=== PATIENT | male | born 1960 | race Caucasian/White ===

== ENCOUNTER → 2016-10-11 | Outpatient (REF) | payer OTHER, SELFPAY ==
[2016-10-11 20:51] LABS: MEAN CORPUSCULAR VOLUME 91.3 fl (80.0-96.0); WHITE BLOOD COUNT 7.2 K/mm3 (4.0-10.0)
[2016-10-11 21:18] LABS: ALBUMIN 4.4 GM/DL (3.2-5.2); ALBUMIN/GLOBULIN RATIO 1.63 (1.00-1.93); ALKALINE PHOSPHATASE 53 U/L (45-117); ALT/SGPT 33 U/L (12-78); ANION GAP 6 MEQ/L (8-16); AST/SGOT 23 U/L (15-37); BILIRUBIN,TOTAL 0.7 MG/DL (0.2-1.0); BLOOD UREA NITROGEN 13 MG/DL (7-18); CALCIUM LEVEL 9.2 MG/DL (8.5-10.1); CARBON DIOXIDE LEVEL 27 MEQ/L (21-32); CHLORIDE LEVEL 107 MEQ/L (98-107); CHOLESTEROL LEVEL 194 MG/DL (<200); GLOMERULAR FILTRATION RATE > 60.0 (>56); GLUCOSE, FASTING 106 MG/DL (70-105); POTASSIUM SERUM 5.1 MEQ/L (3.5-5.1); SODIUM LEVEL 140 MEQ/L (136-145); TOTAL PROTEIN 7.1 GM/DL (6.4-8.2); TRIGLYCERIDES LEVEL 69 MG/DL (<150)
== END ==
LOC: M SFHCLERA 16:42
PROVIDERS: ATTEND Physician Assistant
DX: E11.65 Type 2 diabetes mellitus with hyperglycemia (principal); Z12.5 Encounter for screening for malignant neoplasm of prostate; E78.2 Mixed hyperlipidemia; R10.12 Left upper quadrant pain
CPT/HCPCS: 80053; 80061; 82043; 83036; 85027; G0103

== ENCOUNTER → 2017-04-16 | Outpatient (REF) | payer OTHER ==
[2017-04-17 13:50] LABS: HEMATOCRIT 36.5 % (42.0-52.0); HEMOGLOBIN 11.9 g/dl (14.0-18.0); MEAN CORPUSCULAR HEMOGLOBIN 29.8 pg (27.0-33.0); MEAN CORPUSCULAR HGB CONC 32.6 g/dl (32.0-36.5); MEAN CORPUSCULAR VOLUME 91.3 fl (80.0-96.0); PLATELET COUNT, AUTOMATED 243 10^3/uL (150-450); RED CELL DISTRIBUTION WIDTH 13.1 % (11.5-14.5); WHITE BLOOD COUNT 7.2 10^3/uL (4.0-10.0)
[2017-04-17 14:52] LABS: ALBUMIN 3.7 GM/DL (3.2-5.2); ALBUMIN/GLOBULIN RATIO 1.12 (1.00-1.93); ALKALINE PHOSPHATASE 58 U/L (45-117); ALT/SGPT 34 U/L (12-78); ANION GAP 9 MEQ/L (8-16); AST/SGOT 18 U/L (7-37); BILIRUBIN,TOTAL 0.3 MG/DL (0.2-1.0); BLOOD UREA NITROGEN 18 MG/DL (7-18); CALCIUM LEVEL 8.8 MG/DL (8.5-10.1); CARBON DIOXIDE LEVEL 28 MEQ/L (21-32); CHLORIDE LEVEL 108 MEQ/L (98-107); CREATININE FOR GFR 0.96 MG/DL (0.70-1.30); FERRITIN 382 NG/ML (26-388); GLOMERULAR FILTRATION RATE > 60.0 (>56); GLUCOSE, FASTING 109 MG/DL (70-100); IRON (FE) 46 UG/DL (65-175); POTASSIUM SERUM 4.6 MEQ/L (3.5-5.1); SODIUM LEVEL 145 MEQ/L (136-145)
[2017-04-17 15:03] LABS: ESTIMATED AVERAGE GLUCOSE 163 MG/DL (60-110); HEMOGLOBIN A1c 7.3 %
== END ==
LOC: M SFHCLERA 17:12
DX: E11.65 Type 2 diabetes mellitus with hyperglycemia (principal); I10 Essential (primary) hypertension; D64.9 Anemia, unspecified

== ENCOUNTER → 2017-04-17 | Outpatient (CLI) | payer OTHER | LOC: M LRY 17:08 | DX: M79.642 Pain in left hand (principal) | CPT/HCPCS: 73130 ==

== ENCOUNTER → 2018-03-03 | Outpatient (REF) | payer OTHER ==
[2018-03-03 16:50] LABS: HEMATOCRIT 39.1 % (42.0-52.0); HEMOGLOBIN 12.8 g/dl (13.5-17.5); MEAN CORPUSCULAR HEMOGLOBIN 29.9 pg (27.0-33.0); MEAN CORPUSCULAR HGB CONC 32.7 g/dl (32.0-36.5); MEAN CORPUSCULAR VOLUME 91.4 fl (80.0-96.0); PLATELET COUNT, AUTOMATED 236 10^3/uL (150-450); RED BLOOD COUNT 4.28 10^6/uL (4.30-6.10); RED CELL DISTRIBUTION WIDTH 12.9 % (11.5-14.5); WHITE BLOOD COUNT 6.7 10^3/uL (4.0-10.0)
[2018-03-03 17:36] LABS: ALBUMIN 4.2 GM/DL (3.2-5.2); ALKALINE PHOSPHATASE 71 U/L (45-117); ALT/SGPT 37 U/L (12-78); ANION GAP 10 MEQ/L (8-16); AST/SGOT 17 U/L (7-37); BILIRUBIN,TOTAL 0.6 MG/DL (0.2-1.0); BLOOD UREA NITROGEN 15 MG/DL (7-18); CALCIUM LEVEL 8.9 MG/DL (8.5-10.1); CARBON DIOXIDE LEVEL 25 MEQ/L (21-32); CHLORIDE LEVEL 105 MEQ/L (98-107); CHOLESTEROL LEVEL 199 MG/DL (<200); CHOLESTEROL RISK RATIO 4.145 (<5); CREATININE FOR GFR 0.99 MG/DL (0.70-1.30); GLOMERULAR FILTRATION RATE > 60.0 (>56); GLUCOSE, FASTING 146 MG/DL (70-100); HDL CHOLESTEROL 48 MG/DL (>40); LDL CHOLESTEROL 131 MG/DL (<100); NON-HDL-C 151 MG/DL; POTASSIUM SERUM 4.2 MEQ/L (3.5-5.1); SODIUM LEVEL 140 MEQ/L (136-145); TOTAL PROTEIN 7.2 GM/DL (6.4-8.2); TRIGLYCERIDES LEVEL 99 MG/DL (<150)
[2018-03-03 18:03] LABS: MAU/CREAT RATIO 751.8 MCG/MG (0.0-30.0)
[2018-03-03 18:07] LABS: ESTIMATED AVERAGE GLUCOSE 243 MG/DL (60-110); HEMOGLOBIN A1c 10.1 %
== END ==
LOC: M SFHCLERA 11:12
DX: I10 Essential (primary) hypertension (principal); E11.65 Type 2 diabetes mellitus with hyperglycemia; E78.2 Mixed hyperlipidemia
CPT/HCPCS: 80053

== ENCOUNTER → 2018-04-22 | Outpatient (CLI) | payer OTHER ==
--- NOTE | 2018-04-22 08:14 | REP ---
Clinical: Left upper quadrant pain. Technique: Real time covarrubias scale and color evaluation using linear high frequency transducer. Findings: Directed down examining left upper quadrant the a site of the at the site of the patient's maximal tenderness demonstrates no obvious hernia, fluid collection, mass lesion or obvious abnormality. Pain with most pronounced with transducer pressure when compressing the underlying splenic flexure of the colon which demonstrated no obvious abnormality by sonographic evaluation. Impression: No obvious sonographic findings. Pain with transducer pressure over the splenic flexure. Consider contrast enhanced CT of the abdomen and pelvis for further investigation. Electronically Signed by Tristen Singleton MD 04/22/2018 08:06 A
== END ==
LOC: M RAD 07:36
PROVIDERS: ATTEND Physician Assistant Medical
DX: R10.12 Left upper quadrant pain (principal)

== ENCOUNTER → 2018-05-14 | Outpatient (CLI) | payer OTHER ==
[~2018-05-14] MED LIST: ATOR1TAB21 PO; GLIM4TAB PO; LISI-538 PO; METF500T4 PO
[2018-05-14 13:51] LABS: BLOOD UREA NITROGEN 22 MG/DL (7-18); CREATININE FOR GFR 1.08 MG/DL (0.70-1.30); GLOMERULAR FILTRATION RATE > 60.0 (>56)
== END ==
LOC: M LAB 12:51
PROVIDERS: ATTEND Physician Assistant Medical
DX: R10.12 Left upper quadrant pain (principal)

== ENCOUNTER → 2018-05-16 | Outpatient (CLI) | payer OTHER ==
[~2018-05-16] MED LIST changes: +GASTROGRAFIN SOLUTION 30ML (Q9963) As Ordered ONE; +ISOVUE-370 76% 100ML VIAL (Q9967) As Ordered ONE
--- NOTE | 2018-05-16 15:12 | REP ---
Clinical: Left upper quadrant pain and anemia. Technique: Axial contrast enhanced images from the lung bases to the pubic symphysis using oral (per protocol) and 100 ml Isovue 370 intravenous contrast material with coronal and sagittal re-formations. Automated dose reduction technique and changes based on patient's body habitus utilized for image acquisition. Findings: Lung bases are clear. Visualized heart and pericardium normal. Liver, spleen, pancreas, bilateral adrenal glands and kidneys are normal. Gallstones are identified identified within the gallbladder including a 5 mm calculus which may be lodged at the gallbladder neck/cystic duct. The enteric system is without obstruction or acute inflammatory process. Sigmoid diverticula noted without acute diverticulitis or pelvis demonstrates small fat containing inguinal hernias. Bladder is normal. Prostate gland is upper limits of normal in size. No ascites. No free air. No intraperitoneal or retroperitoneal adenopathy. Abdominal aorta without aneurysm or dissection. Musculoskeletal structures intact without focal osseous abnormality. Impression: 1. Cholelithiasis including possible 5 mm calculus lodged at the gallbladder neck/cystic duct confluence. No associated evidence to suggest acute cholecystitis. 2. Scattered sigmoid diverticula without acute diverticulitis. 3. Prostate gland is mildly enlarged. Electronically Signed by Tristen Singleton MD 05/16/2018 03:04 P
== END ==
LOC: M RAD 12:03
PROVIDERS: ATTEND Physician Assistant Medical
DX: R10.9 Unspecified abdominal pain (principal); D64.9 Anemia, unspecified

== ENCOUNTER 2018-05-22 09:10 | Day surgery (SDC) | payer OTHER ==
[~2018-05-22] VITALS: Ht 175.3 cm; Wt 95.3 kg
[~2018-05-22 09:10] MED LIST changes: -GASTROGRAFIN SOLUTION 30ML (Q9963) As Ordered ONE; -ISOVUE-370 76% 100ML VIAL (Q9967) As Ordered ONE; +NS 1,000 ML IV ONE
[2018-05-22] MEDS ORDERED: LIDOCAINE 2% INJ 100 MG/5 ML SDV (FOR ANES.) As Ordered ONE (09:45)
[2018-05-22] MEDS ORDERED: PROPOFOL 200 MG/20 ML VIAL As Ordered ONE (09:45)
--- NOTE | 2018-05-22 11:37 | ROOR ---
Patient Name: Maurisio Mcwilliams Procedure Date: 05/22/2018 10:38 AM Date of : 1960 Age: 57 Room: [facility] Gender: Male Note Status: Finalized Procedure: Upper GI endoscopy Indications: Abdominal pain in the left upper quadrant Providers: Chau Hilliard MD Referring MD: [facility], Admin. Requesting Provider: Medicines: Monitored Anesthesia Care Complications: No immediate complications. Procedure: Pre-Anesthesia Assessment: - Prior to the procedure, a History and Physical was performed, and patient medications and allergies were reviewed. The patient is competent. The risks and benefits of the procedure and the sedation options and risks were discussed with the patient. All questions were answered and informed consent was obtained. Patient identification and proposed procedure were verified by the physician, the nurse and the anesthesiologist in the procedure room. Mental Status Examination: alert and oriented. Airway Examination: normal oropharyngeal airway and neck mobility. Respiratory Examination: clear to auscultation. CV Examination: normal. Prophylactic Antibiotics: The patient does not require prophylactic antibiotics. Prior Anticoagulants: The patient has taken no previous anticoagulant or antiplatelet agents. ASA Grade Assessment: II - A patient with mild systemic disease. After reviewing the risks and benefits, the patient was deemed in satisfactory condition to undergo the procedure. The anesthesia plan was to use monitored anesthesia care (MAC). Immediately prior to administration of medications, the patient was re-assessed for adequacy to receive sedatives. The heart rate, respiratory rate, oxygen saturations, blood pressure, adequacy of pulmonary ventilation, and response to care were monitored throughout the procedure. The physical status of the patient was re-assessed after the procedure. The Endoscope was introduced through the mouth, and advanced to the second part of duodenum. The upper GI endoscopy was accomplished without difficulty. The patient tolerated the procedure well. Findings: The examined esophagus was normal. Diffuse mild inflammation characterized by erythema was found in the gastric body and in the gastric antrum. Biopsies were taken with a cold forceps for histology. Biopsies were taken with a cold forceps for Helicobacter pylori testing. Verification of patient identification for the specimen was done by the physician and nurse using the patient's name, date and medical record number. The duodenal bulb and second portion of the duodenum were normal. Biopsies for histology were taken with a cold forceps for evaluation of celiac disease. Biopsies for histology were taken with a cold forceps for evaluation of celiac disease. Impression: - Normal esophagus. - Gastritis. Biopsied. - Normal duodenal bulb and second portion of the duodenum. Biopsied. Recommendation: - Patient has a contact number available for emergencies. The signs and symptoms of potential delayed complications were discussed with the patient. Return to normal activities tomorrow. Written discharge instructions were provided to the patient. - Resume previous diet. - Continue present medications. - Await pathology results. - Return to primary care physician. - Based on the biopsy results you will receive a phone call from GI clinic in 2-3 weeks to review the pathology results AND/OR your results will be faxed to your Primary care physician. Chau Hilliard MD Chau Hilliard MD 05/22/2018 11:37:15 AM This report has been signed electronically. Number of Addenda: 0 Note Initiated On: 05/22/2018 10:38 AM Estimated Blood Loss: Estimated blood loss was minimal.
[2018-05-22 11:52] VITALS: BP 133/81
--- NOTE | 2018-05-22 11:55 | ROOR ---
Patient Name: Maurisio Mcwilliams Procedure Date: 05/22/2018 10:39 AM Date of : 1960 Age: 57 Room: [facility] Gender: Male Note Status: Finalized Procedure: Colonoscopy Indications: Screening for colorectal malignant neoplasm Providers: Chau Hilliard MD Referring MD: RILEY RUSTMartha [facility], Admin. Requesting Provider: Medicines: Monitored Anesthesia Care Complications: No immediate complications. Procedure: Pre-Anesthesia Assessment: - Prior to the procedure, a History and Physical was performed, and patient medications and allergies were reviewed. The patient is competent. The risks and benefits of the procedure and the sedation options and risks were discussed with the patient. All questions were answered and informed consent was obtained. Patient identification and proposed procedure were verified by the physician, the nurse and the anesthesiologist in the procedure room. Mental Status Examination: alert and oriented. Airway Examination: normal oropharyngeal airway and neck mobility. Respiratory Examination: clear to auscultation. CV Examination: normal. Prophylactic Antibiotics: The patient does not require prophylactic antibiotics. Prior Anticoagulants: The patient has taken no previous anticoagulant or antiplatelet agents. ASA Grade Assessment: II - A patient with mild systemic disease. After reviewing the risks and benefits, the patient was deemed in satisfactory condition to undergo the procedure. The anesthesia plan was to use monitored anesthesia care (MAC). Immediately prior to administration of medications, the patient was re-assessed for adequacy to receive sedatives. The heart rate, respiratory rate, oxygen saturations, blood pressure, adequacy of pulmonary ventilation, and response to care were monitored throughout the procedure. The physical status of the patient was re-assessed after the procedure. The Colonoscope was introduced through the anus and advanced to the terminal ileum, with identification of the appendiceal orifice and IC valve. The colonoscopy was performed without difficulty. The patient tolerated the procedure well. The quality of the bowel preparation was good. The terminal ileum, ileocecal valve, appendiceal orifice, and rectum were photographed. Scope insertion time was 3 minutes. Scope withdrawal time was 9 minutes. The total duration of the procedure was 12 minutes. Findings: The perianal and digital rectal examinations were normal. The terminal ileum appeared normal. Multiple small and large-mouthed diverticula were found in the sigmoid colon. There was no evidence of diverticular bleeding. Non-bleeding external and internal hemorrhoids were found during retroflexion. The hemorrhoids were medium-sized. The exam was otherwise normal throughout the examined colon. Impression: - The examined portion of the ileum was normal. - Moderate diverticulosis in the sigmoid colon. There was no evidence of diverticular bleeding. - Non-bleeding external and internal hemorrhoids. - No specimens collected. Recommendation: - Patient has a contact number available for emergencies. The signs and symptoms of potential delayed complications were discussed with the patient. Return to normal activities tomorrow. Written discharge instructions were provided to the patient. - High fiber diet. - Continue present medications. - Repeat colonoscopy in 10 years for screening purposes. - Return to primary care physician. Chau Hilliard MD Chau Hilliard MD 05/22/2018 11:55:30 AM This report has been signed electronically. Number of Addenda: 0 Note Initiated On: 05/22/2018 10:39 AM Estimated Blood Loss: Estimated blood loss: none.
== END 2018-05-22 12:32 | disposition home or self-care (01) ==
LOC: M OPP 09:10
PROVIDERS: ATTEND Internal Medicine Gastroenterology
DX: Z12.11 Encounter for screening for malignant neoplasm of colon (principal); R10.12 Left upper quadrant pain; K57.30 Diverticulosis of large intestine without perforation or abscess without bleeding; K64.8 Other hemorrhoids; K29.70 Gastritis, unspecified, without bleeding; E11.9 Type 2 diabetes mellitus without complications; I10 Essential (primary) hypertension; E78.00 Pure hypercholesterolemia, unspecified; Z79.84 Long term (current) use of oral hypoglycemic drugs; Z79.899 Other long term (current) drug therapy; Z80.42 Family history of malignant neoplasm of prostate

== ENCOUNTER → 2018-06-25 | Outpatient (REF) | payer OTHER ==
[~2018-06-25] MED LIST changes: -NS 1,000 ML IV ONE
== END ==
LOC: M SFHCLERA 11:53
PROVIDERS: ATTEND Nurse Practitioner Family
DX: E11.9 Type 2 diabetes mellitus without complications (principal); N40.0 Benign prostatic hyperplasia without lower urinary tract symptoms

== ENCOUNTER 2020-04-12 21:08 | Emergency (ER) | payer OTHER ==
[~2020-04-12] VITALS: Ht 175.3 cm; Wt 96.3 kg
[~2020-04-12 21:08] MED LIST changes: -GLIM4TAB PO; +GLIM4TAB5 PO; -LISI-538 PO; +LISI20TA33 PO; +METF-838 PO; -METF500T4 PO
--- OUTSIDE RECORDS SUMMARY | 2020-04-12 21:19 | CCD ---
Author Author Formerly [facility] Organization [facility] Address Unknown Phone Unavailable Care Team Providers Care Marker Delivery Name Role Phone Anastasia Nicole Unavailable PROBLEMS Type Condition ICD9-CM Code [id number] Code Onset Dates Condition S tatus SNOMED Code Notes Problem Mixed hyperlipidemia E78.2 Active 302718717 Problem Enlarged prostate N40.0 Active 860640224 Problem Essential hypertension I10 Active 36569487 Problem Diabetes type 2, controlled E11.9 Active 4405 4006 Problem Diabetes type 2, uncontrolled E11.65 Active 44 6481074 ALLERGIES No Known Allergies ENCOUNTERS from 1960 to 2020-02-25 Encounter Location Date Provider Diagnosis [facility] [address] [place] [address] Jan, Anastasia Nicole IMMUNIZATIONS Vaccine Route Administration Date Status TDAP 0.5mL (Boostrix) IM Intramuscular June 01, 2015 Administe red SOCIAL HISTORY Tobacco Use: Social History Observation Description Date Details (start date - stop date) Never Smoker Sex Assigned At : Social History Observation Description Sex Assigned At Unknown Education: Question Answer Notes Level of Education: High School Audit Question Answer Notes Total Score: 1 Interpretation: Alcohol Education Language: Question Answer Notes Languages spoken: Albanian Confucianism: Question Answer Notes Confucianism 33 None Drug and Alcohol Question Answer Notes Total Score: 0 Interpretation: No problems reported BMI Care Goal Follow-Up Question Answer Notes Above Normal BMI Follow-Up Dietary management educatio n, guidance, and counseling, Dietary needs education, Exercise promotion: strength training Tobacco Use: Question Answer Notes Are you a: never smoker REASON FOR REFERRAL No Information VITAL SIGNS No information MEDICATIONS Medication SIG (Take, Route, Frequency, Duration) Notes Start Da te End Date Status Glimepiride 4MG TAKE ONE TABLET BY MOUTH ONC E DAILY WITH BREAKFAST OR THE FIRST MAIN MEAL OF THE DAY Orally Once a day for 90 days Active FreeStyle Lite Test _ as directed In Vitro twice d aily as needed ICD10 E11.65 for 30 Active Lisinopril 20 MG 1 tablet Orally Once a day for 90 Active Blood Glucose Meter _ as directed _ daily as needed ICD10 E1 1.65 for 99 months May, Active FreeStyle Lite - USE TO TEST TWICE DAILY NEEDED for 99 days Active Atorvastatin Calcium 20 MG 1 tablet Orally Once a day for 90 day(s) Active FreeStyle Lancets _ as directed subcutaneously t wice daily as needed ICD10 E11.65 for 90 day(s) Active Glucophage XR 500 MG 1 tab in am w/ food, 2 tabs in pm w/ food Orally Once a day for 90 day(s) Active Lancets 30G _ as directed _ bid ICD10 E11.65 for 30 day(s) May, Active PROCEDURES No Information RESULTS No Results REASON FOR VISIT REFILL MEDICAL (GENERAL) HISTORY Type Description Date Surgical History fatty tumor removal 1998 Goals Section No Information Health Concerns No Information MEDICAL EQUIPMENT No Information MENTAL STATUS No Information FUNCTIONAL STATUS No Information ASSESSMENTS No Information PLAN OF TREATMENT Medication Medication Name Sig Start Date Stop Date Glimepiride 4MG TAKE ONE TABLET BY MOUTH ONC E DAILY WITH BREAKFAST OR THE FIRST MAIN MEAL OF THE DAY Orally Once a day for 90 days FreeStyle Lancets _ as directed subcutaneously t wice daily as needed ICD10 E11.65 for 90 day(s) Glucophage XR 500 MG 1 tab in am w/ food, 2 tabs in pm w/ food Orally Once a day for 90 day(s) Atorvastatin Calcium 20 MG 1 tablet Orally Once a day for 90 day (s) Lancets 30G _ as directed _ bid ICD10 E11.65 for 30 day(s) May, Lisinopril 20 MG 1 tablet Orally Once a day for 90 FreeStyle Lite Test _ as directed In Vitro twice d aily as needed ICD10 E11.65 for 30 FreeStyle Lite - USE TO TEST TWICE DAILY NEEDED for 99 days Next Appt Details Provider Name:Anastasia Corey, 2020-12- 08 10:00:00 AM, [address] [place], [address], Insurance Providers Payer Name Payer Address Payer Phone Insured Name Patient Relati onship to Insured Coverage Start Date Coverage End Date [facility]POR[facility] CLAIMS DEPT [address] [facility] [phone] AURY ESTRADA self
--- OUTSIDE RECORDS SUMMARY | 2020-04-12 21:19 | CCD ---
Author Author [facility] [employer] [facility] Organization [facility] [employer] [facility] [employer] Address Unknown Phone Unavailable Care Team Providers Care Conservation Science Teacher Name Role Phone Anastasia Nicole Unavailable PROBLEMS Type Condition ICD9-CM Code [id number] Code Onset Dates Condition S tatus SNOMED Code Notes Problem Mixed hyperlipidemia E78.2 Active 484991778 Problem Enlarged prostate N40.0 Active 689647985 Problem Essential hypertension I10 Active 04695034 Problem Diabetes type 2, controlled E11.9 Active 4405 4006 Problem Diabetes type 2, uncontrolled E11.65 Active 44 7508583 ALLERGIES No Known Allergies ENCOUNTERS from 1960 to 2020-03-05 Encounter Location Date Provider Diagnosis [facility] [address] [place] [address] Feb, Anastasiasole Nicole Diabetes type 2, controlled E11.9 ; Sari al physical exam Z00.00 ; Encounter for immunization Z23 ; Mixed hyperlipidemia E78.2 ; Essential hypertension I10 and Need for pneumococcal vaccine Z23 IMMUNIZATIONS Vaccine Route Administration Date Status TDAP [...] Education Language: Question Answer Notes Languages spoken: Polish Baptist: Question Answer Notes Baptist 33 None Drug and Alcohol Question Answer Notes Total Score: 0 Interpretation: No problems reported BMI Care Goal Follow-Up Question Answer Notes Above Normal BMI Follow-Up Dietary management educatio n, guidance, and counseling, Dietary needs education, Exercise promotion: strength training Tobacco Use: Question Answer Notes Are you a: never smoker REASON FOR REFERRAL No Information VITAL SIGNS Weight 217.2 lbs Feb, Height 69 in Feb, BMI 32.07 kg/m2 Feb, Heart Rate 60 /min Feb, Respiratory Rate 17 /min Feb, Temperature 97.3 degrees Fahrenheit Feb, Oximetry 100 Feb, Blood pressure systolic 156 mm Hg Feb, Blood pressure diastolic 72 mm Hg Feb, MEDICATIONS Medication SIG (Take, Route, Frequency, Duration) Notes Start Da te End Date Status Lancets 30G _ as directed _ bid ICD10 E11.65 for 30 day(s) May, Active Blood Glucose Meter _ as directed _ daily as needed ICD10 E1 1.65 for 99 months May, Active Lisinopril 20 MG 1 tablet Orally Once a day for 90 Active FreeStyle Lite Test _ as directed In Vitro twice d aily as needed ICD10 E11.65 for 30 Active Glucophage XR 500 MG 1 tab in am w/ food, 2 tabs in pm w/ food Orally Once a day for 90 day(s) Active FreeStyle Lite - USE TO TEST TWICE DAILY NEEDED for 99 days Active FreeStyle Lancets _ as directed subcutaneously t wice daily as needed ICD10 E11.65 for 90 day(s) Active Atorvastatin Calcium 20 MG 1 tablet Orally Once a day for 90 day(s) Active Glimepiride 4MG TAKE ONE TABLET BY MOUTH ONC E DAILY WITH BREAKFAST OR THE FIRST MAIN MEAL OF THE DAY Orally Once a day for 90 days Active PROCEDURES No Information RESULTS No Results REASON FOR VISIT annual wellness exam MEDICAL (GENERAL) HISTORY Type Description Date Surgical History fatty tumor removal 1998 Goals Section No Information Health Concerns No Information MEDICAL EQUIPMENT No Information MENTAL STATUS No Information FUNCTIONAL STATUS No Information ASSESSMENTS Encounter Date Diagnosis Assessment Notes Treatment Notes Treatm ent Clinical Notes Feb, Diabetes type 2, controlled (ICD-10 - E11.9) For your diabetes continue to follow low fat, low cholesterol, no added salt diet. . Exercise at least 150min/week. Referral sent for your eye screening . Your blood pressure is stable. Goal for Hemoglobin A1C is 7-7.5%. Labs ordered, if BS consistent w/ reported values will be at goal. Feb, Annual physical exam (ICD-10 - Z00.00) Appears to be stable at this time. Reviewed recommended screenings, up to date with exception of DM eye exam. Referral placed. Reviewed diet/lifestyle modifications. Feb, Encounter for immunization (ICD-10 - Z23) Patient Educated with: FLU Vaccine, Inactivated [id number] (FLU Vaccine, Inactivated [id number].pdf) Feb, Mixed hyperlipidemia (ICD-10 - E78.2) lab ordered, pending disposition Feb, Essential hypertension (ICD-10 - I10) Blood pressure is stable on meds. Continue current management. Attempt to follow DASH diet (lots of fruit, vegetable and low-fat dairy, low in saturated fat). Reduce salt to less than 2.4 grams/day. Engage in aerobic activities for 30 minutes on most days. Maintain a healthy weight. Limit alcohol intake to one drink a day. Feb, Need for pneumococcal vaccine (ICD-10 - Z23) PLAN OF TREATMENT Treatment Notes Assessment Notes Clinical Notes Diabetes type 2, controlled For your abril betes continue to follow low fat, low cholesterol, no added salt diet. . Exercise at least 150min/week. Referral sent for your eye screening . Your blood pressure is stable. Goal for Hemoglobin A1C is 7-7.5%. Labs ordered, if BS consistent w/ reported values will be at goal. Annual physical exam Appears to be stabl e at this time. Reviewed recommended screenings, up to date with exception of DM eye exam. Referral placed. Reviewed diet/lifestyle modifications. Encounter for immunization Patient Educated with: FLU Vaccine, Inactivated [id number] (FLU Vaccine, Inactivated [id number].pdf) Mixed hyperlipidemia lab ordered, pendin g disposition Essential hypertension Blood pressure is stable on meds. Continue current management. Attempt to follow DASH diet (lots of fruit, vegetable and low-fat dairy, low in saturated fat). Reduce salt to less than 2.4 grams/day. Engage in aerobic activities for 30 minutes on most days. Maintain a healthy weight. Limit alcohol intake to one drink a day. Treatment Notes Test Name Order Date Immunization: Pneumovax 23 0.5mL IM (Pneumococcal) Immunization: Flublok Quadrivalent (18 years & older) 0.5mL IM (Influenza) 2020-03-05 Future Test Test Name Order Date HEMOGLOBIN A1c [id number] MICROALBUMIN RANDOM [id number] Comprehensive Metabolic Profile (CMP) [id number] LIPID PANEL (CARDIAC RISK) [id number] CBC with Differential [id number] Next Appt Details 6 Months (DM visit) Reason: Insurance Providers Payer Name Payer Address Payer Phone Insured Name Patient Relati onship to Insured Coverage Start Date Coverage End Date [facility] [employer] CLAIM[facility] DEPT [address] [facility] [phone] AURY ESTRADA self
--- OUTSIDE RECORDS SUMMARY | 2020-04-12 21:19 | CCD ---
Author Author [facility] Address Unknown Phone Unavailable Support Name Relationship Address Phone UE Next Of Kin Unknown Unavailable YOSI SANTANA [place] [address] Tania Muniz ECON Unknown Unavailab le YOSI SANTANA ECON [address] [place] [address] [phone] Re-disclosure Warning The records that you are about to access may contain information from federally-assisted alcohol or drug abuse programs. If such information is present, then the following federally mandated warning applies: This information has been disclosed to you from records protected by federal confidentiality rules (42 CFR part 2). The federal rules prohibit you from making any further disclosure of this information unless further disclosure is expressly permitted by the written consent of the person to whom it pertains or as otherwise permitted by 42 CFR part 2. A general authorization for the release of medical or other information is NOT sufficient for this purpose. The Federal rules restrict any use of the information to criminally investigate or prosecute any alcohol or drug abuse patient.The records that you are about to access may contain highly sensitive health information, the redisclosure of which is protected by Article 27-F of the [facility] Public Health law. If you continue you may have access to information: Regarding HIV / AIDS; Provided by facilities licensed or operated by the [facility] Office of Mental Health; or Provided by the [facility] Office for People With Developmental Disabilities. If such information is present, then the following [facility] mandated warning applies: This information has been disclosed to you from confidential records which are protected by state law. State law prohibits you from making any further disclosure of this information without the specific written consent of the person to whom it pertains, or as otherwise permitted by law. Any unauthorized further disclosure in violation of state law may result in a fine or senior care sentence or both. A general authorization for the release of medical or other information is NOT sufficient authorization for further disc losure. Family History Family Member Name Family Member Gender Family Member Status Date o f Status Description Data Source(s) Unknown Unknown Problem MEDENT ([facility], ) Encounters Encounter Providers Location Date Indications Data Source(s ) [place] [address] [facility] [address] 03/01/2020 12:00:00 AM EST eCW1 ([facility] [place]) [place] [address] [facility] [place] [address] 01/25/2020 12:00:00 AM EST eCW1 ([facility] [place]) [place] [address] [facility] [address] 09/30/2019 12:00:00 AM EDT [facility] [place] [place] [address] [facility] [place] [address] 08/28/2019 12:00:00 AM EDT [facility] [place] [place] [address] [facility] [place] [address] 07/29/2019 12:00:00 AM EDT [facility]CW[facility] [place] [address] [facility] [place] [address] 04/24/2019 12:00:00 AM EST [facility]CW[facility] [place] [address] [facility] [place] [address] 04/17/2019 12:00:00 AM EST [facility] Insurance Providers Payer name Policy type / Coverage type Policy ID Covered democrat ID Covered democrat's relationship to griggs Policy Griggs Plan Information [facility] [id number] SP [id number] [address] [facility] [id number] 7 [id number] ANSI-Commercial [id number] [employer] [place] [id number] [facility] [id number] ANSI-Commercial [id number] ANSI-Commercial [id number] ANSI-Commercial [id number] [facility] [employer] [place] O [id number] S [id number] SELF PAY ONLY UNAVAILABLE SP UNAV AILABLE MEDICAID [id number] SP [id number] Social History Code Duration Value Status Description Data Source(s ) Smoking 03/01/2020 12:00:00 AM EST Never Smoker completed Never S moker eCW1 ([facility]) Vital Signs ID Date Data Source UNK Name Value Range Interpretation Code Description Data Source(s) Diastolic blood pressure 72 mm[Hg] 72 mm[Hg] eCW1 ([facility]) Systolic blood pressure 156 mm[Hg] 156 mm[Hg] e CW1 ([facility]) Body temperature 97.3 [degF] 97.3 [degF] eCW1 ( [facility]) Respiratory rate 17 /min 17 /min eCW1 ([facility]) Heart rate 60 /min 60 /min eCW1 ([facility]) Body mass index (BMI) [Ratio] 32.07 kg/m2 32.07 kg/m2 eCW1 ([facility]) Body height 69 [in_i] 69 [in_i] eCW1 ([facility]) Body weight 217.2 [lb_av] 217.2 [lb_av] eCW1 ([facility])
--- OUTSIDE RECORDS SUMMARY | 2020-04-12 23:30 | CCD ---
Author Author [facility] Address Unknown Phone Unavailable Support Name Relationship Address Phone UE Next Of Kin Unknown Unavailable YOSI SANTANA [place] [address] Tania Muniz ECON Unknown Unavailab le YOSI SANTANA ECON [address] [place] [address] [phone] Re-disclosure Warning The records that you are [...] is protected by Article 27-F of the [facility] Public Health law. If you continue you may have access to information: Regarding HIV / AIDS; Provided by facilities licensed or operated by the [facility] Office of Mental Health; or Provided by the [facility] Office for People With Developmental Disabilities. If such information is present, then the following [facility] mandated warning applies: This information has been [...] law may result in a fine or chcf sentence or both. A general authorization for the release of medical or other information is NOT sufficient authorization for further disc losure. Family History Family Member Name Family Member Gender Family Member Status Date o f Status Description Data Source(s) Unknown Unknown Problem MEDENT ([facility], ) Encounters Encounter Providers Location Date Indications Data Source(s ) [place] [address] [facility] [address] 03/01/2020 12:00:00 AM EST eCW1 ([facility] [place]) [place] [address] [facility] [place] [address] 01/25/2020 12:00:00 AM EST eCW1 ([facility] [place]) [place] [address] [facility] [address] 09/30/2019 12:00:00 AM EDT [facility] [place] [place] [address] [facility] [place] [address] 08/28/2019 12:00:00 AM EDT [facility]CW1 [facility] [place] [place] [address] [facility] [place] [address] 07/29/2019 12:00:00 AM EDT [facility]CW1 [facility] [place] [address] [facility] [place] [address] 04/24/2019 12:00:00 AM EST [facility]CW[facility] [place] [address] [facility] [place] [address] 04/17/2019 12:00:00 AM EST [facility]) Insurance Providers Payer name Policy type / Coverage type Policy ID Covered green party ID Covered green party's relationship to griggs Policy Griggs Plan Information [facility] [id number] SP [id number] [address] [facility] [id number] 7 [id number] ANSI-Commercial [id number] [employer] [place] Medicaid [id number] [facility] [id number] ANSI-Commercial [id number] ANSI-Commercial [id number] ANSI-Commercial [id number] [facility] [place] O [id number] S [id number] SELF PAY ONLY UNAVAILABLE SP UNAV AILABLE MEDICAID [id number] SP [id number] Social History Code Duration Value Status Description Data Source(s ) Smoking 03/01/2020 12:00:00 AM EST Never Smoker completed Never S moker eCW1 ([facility]) Vital Signs ID Date Data Source UNK Name Value Range Interpretation Code Description Data Source(s) Diastolic blood pressure 72 mm[Hg] 72 mm[Hg] eCW1 ([facility]) Systolic blood pressure 156 mm[Hg] 156 mm[Hg] e CW1 ([facility]) Body temperature 97.3 [degF] 97.3 [degF] eCW1 ( [facility]) Respiratory rate 17 /min 17 /min eCW1 ([facility]) Heart rate 60 /min 60 /min eCW1 ([facility]) Body mass index (BMI) [Ratio] 32.07 kg/m2 32.07 kg/m2 eCW1 ([facility]) Body height 69 [in_i] 69 [in_i] eCW1 ([facility]) Body weight 217.2 [lb_av] 217.2 [lb_av] eCW1 ([facility])
[2020-04-12] MEDS ORDERED: ACETAMINOPHEN TAB 650MG DOSE (2X325MG) PO ONE (23:45)
[2020-04-13 00:16] LABS: EOS % 0.2 % (0.0-3.0); HEMATOCRIT 31.8 % (42.0-52.0); HEMOGLOBIN 10.3 g/dl (13.5-17.5); LYMPH # 0.9 10^3/uL (1.5-5.0); LYMPH % 21.3 % (24.0-44.0); MEAN CORPUSCULAR HEMOGLOBIN 29.1 pg (27.0-33.0); MEAN CORPUSCULAR HGB CONC 32.4 g/dl (32.0-36.5); MEAN CORPUSCULAR VOLUME 89.8 fl (80.0-96.0); MONO # 0.4 10^3/uL (0.0-0.8); NEUTROPHILS % 69.3 % (36.0-66.0); PLATELET COUNT, AUTOMATED 155 10^3/uL (150-450); RED BLOOD COUNT 3.54 10^6/uL (4.30-6.10); WHITE BLOOD COUNT 4.3 10^3/uL (4.0-10.0)
[2020-04-13 00:33] LABS: INR 1.04; PROTHROMBIN TIME 13.8 SECONDS (12.5-14.3)
[2020-04-13 00:34] LABS: PARTIAL THROMBOPLASTIN TIME 32.3 SECONDS (24.2-38.5)
[2020-04-13 00:36] LABS: D-DIMER QUANT 561.33 ng/ml (<500)
[2020-04-13 00:47] LABS: ALBUMIN 3.4 GM/DL (3.2-5.2); ALT/SGPT 31 U/L (12-78); BILIRUBIN,TOTAL 0.4 MG/DL (0.2-1.0); BLOOD UREA NITROGEN 20 MG/DL (7-18); C REACTIVE PROTEIN QUANTITATIV 1.46 MG/DL (0.00-0.30); CARBON DIOXIDE LEVEL 27 MEQ/L (21-32); CHLORIDE LEVEL 106 MEQ/L (98-107); CK-MB VALUE MASS 1.3 NG/ML (<3.6); CPK CREATINE PHOSPHOKINASE 188 U/L (39-308); CREATININE FOR GFR 1.15 MG/DL (0.70-1.30); FERRITIN 765 NG/ML (26-388); GLOMERULAR FILTRATION RATE > 60.0 (>56); GLUCOSE, FASTING 129 MG/DL (70-100); LDH LACTATE DEHYDROGENASE 266 U/L (87-241); MB/CK RELATIVE INDEX 0.69 (< OR =4); POTASSIUM SERUM 4.5 MEQ/L (3.5-5.1); SODIUM LEVEL 137 MEQ/L (136-145); TOTAL PROTEIN 6.3 GM/DL (6.4-8.2); TROPONIN I < 0.02 NG/ML (< 0.10)
--- NOTE | 2020-04-13 01:20 | REPVR ---
PROCEDURE INFORMATION: Exam: XR Chest, 1 View Exam date and time: 04/12/2020 11:44 PM Age: 59 years old Clinical indication: Screening exam; Other screening; Additional info: Coronavirus workup TECHNIQUE: Imaging protocol: XR of the chest Views: 1 view. COMPARISON: No relevant prior studies available. FINDINGS: Lungs: Degree of lung inflation is normal. No evidence of pulmonary edema. No focal consolidation or parenchymal lung mass. Pleural space: No pleural effusion or pneumothorax. Heart/Mediastinum: Cardiac silhouette appears normal. No adenopathy or hilar mass. Bones/joints: Osseous structures show no concerning abnormality. IMPRESSION: No acute or focal cardiopulmonary process. Electronically signed by: Troy Salazar On 04/13/2020 01:19:51 AM
[2020-04-13] MEDS ORDERED: METF-838 PO (02:21)
[2020-04-13 03:51] VITALS: BP 128/82
--- NOTE | 2020-04-13 20:40 | ECGEPIP ---
[facility] - ED Test Date: 2020-04-13 Pat Name: AURY ESTRADA Department: Room: - Gender: Male Property Condition Assessor: BROCK : 1960 Requested By: KEVIN López Order Number: [id number] Reading MD: Bulmaro Ogden Measurements Intervals Jesse Rate: 80 P: 10 [place]: 191 QRS: -4 QRSD: 86 T: 14 QT: 368 QTc: 426 Interpretive Statements SINUS RHYTHM NONSPECIFIC T WAVE ABNORMALITY(S) BASELINE ARTIFACT AFFECTS INTERPRETATION NO PRIORS FOR COMPARISON Electronically Signed on 04-13-2020 20:39:36 EST by Bulmaro Ogden
== END 2020-04-13 03:52 | disposition home or self-care (01) ==
LOC: M ED 21:08
DX: U07.1 COVID-19 (principal); R50.9 Fever, unspecified; R00.2 Palpitations; I11.9 Hypertensive heart disease without heart failure; E11.9 Type 2 diabetes mellitus without complications; Z79.84 Long term (current) use of oral hypoglycemic drugs; Z79.899 Other long term (current) drug therapy

== ENCOUNTER 2020-04-13 04:02 | Outpatient (CLI) | payer OTHER ==
--- NOTE | 2020-04-13 03:16 | HPEPDOC ---
[facility] Medical History & Physical Date of Admission Apr 13, 2020 Date of Service: Apr 13, 2020 Primary Care Physician: LUIS VASQUEZ Attending Physician: WENDY CANSECO MD History and Physical TIME OF SERVICE: 300am CHIEF COMPLAINT: dyspena HISTORY OF PRESENT ILLNESS: This 59 yr old male presented w c/o dyspnea, cough, fatigue and fever for 4 days. The OTC medications he has been taking have not been helping. Despite not having any known COVID + contacts he was diagnosed with COVID 19 this evening. REVIEW OF SYSTEMS: 12-point review of systems negative except as listed in HPI PAST MEDICAL/ SURGICAL HISTORY: Chronic HTN DM with nephropathy Resection of lipoma SOCIAL HISTORY: Non-smoker FAMILY HISTORY: Cancer, HTN, DM ALLERGIES: Please see below. HOME MEDICATIONS: Please see below. PHYSICAL EXAMINATION: VITAL SIGNS: Please see below. GENERAL APPEARANCE: well nourished/ well developed NAD HEENT: EOMI / mask in place LUNGS: not using accessory muscles / on room air NEUROLOGICAL: speech not dysarthric PSYCHIATRIC: A&O x 3 LABORATORY DATA: WBC 4.3, Plt 115, D-dimer 561, Ferritin 765, LDH 266, Trop <0.02, CRP 1.46 IMAGING: n/a MICROBIOLOGY: + COVID 19 ASSESSMENT: Mr. Mcwilliams is a 59 yr old w a hx of DM & HTN who meets criteria for Bamlanivimab infusion. PLAN: 1. COVID-19 Plan: transfer to [facility] under outpatient status / COVIE-19 order set with Bamlanivimab infusion Home Medications Scheduled Atorvastatin Calcium (Atorvastatin Calcium) 20 Mg Tab, 20 MG PO DAILY Glimepiride (Glimepiride) 4 Mg Tab, 4 MG PO DAILY Lisinopril (Lisinopril) 20 Mg Tab, 20 MG PO DAILY Metformin HCl (Metformin HCl ER) 500 Mg Tab, 500 MG PO DAILY Metformin HCl (Metformin HCl ER) 500 Mg Tab.er.24h, 1,000 MG PO QPM AFTER DINNER Allergies Coded Allergies: No Known Allergies (Unverified , 05/19/18) A-FIB/CHADSVASC A-FIB History Current/History of A-Fib/PAF?: No Current PO Anticoag Therapy: No WENDY CANSECO MD Apr 13, 2020 03:16
[~2020-04-13 04:02] MED LIST changes: +ALBUTEROL 90 MCG/ACT 8GM HFA INHALER INH PRN; +ALBUTEROL SULFATE 2.5 MG/0.5 ML INH NEB SOLN INH PRN; +EPINEPHrine INJ 1 MG/ML 1ML AMP IM PRN; +NS 1,000 ML IV SCH; +diphenhydrAMINE 50MG/ML VIAL (J1200) IV PRN; +methylPREDNISolone 125MG 2ML VIAL IV PRN
[2020-04-13 04:08] VITALS: BP 133/69
[2020-04-13] MEDS ORDERED: BAMLANIVIMAB 700 MG in NS 250 ML IV ONE (05:00)
[2020-04-13 05:32] VITALS: BP 136/72
[2020-04-13 06:02] VITALS: BP 121/66
[2020-04-13 06:34] VITALS: BP 125/69
[2020-04-13 07:39] VITALS: BP 127/70
== END 2020-04-13 07:45 | disposition home or self-care (01) ==
LOC: M OPCLI4 04:02 → M 4MAIN 04:03 → M OPCLI4 07:45
PROVIDERS: ATTEND Internal Medicine
DX: U07.1 COVID-19 (principal)

== ENCOUNTER 2020-05-09 09:53 | Emergency (ER) | payer OTHER ==
[~2020-05-09] VITALS: Ht 175.3 cm; Wt 86.2 kg
[~2020-05-09 09:53] MED LIST changes: -ALBUTEROL 90 MCG/ACT 8GM HFA INHALER INH PRN; -ALBUTEROL SULFATE 2.5 MG/0.5 ML INH NEB SOLN INH PRN; -EPINEPHrine INJ 1 MG/ML 1ML AMP IM PRN; -NS 1,000 ML IV SCH; -diphenhydrAMINE 50MG/ML VIAL (J1200) IV PRN; -methylPREDNISolone 125MG 2ML VIAL IV PRN
--- OUTSIDE RECORDS SUMMARY | 2020-05-09 10:02 | CCD ---
Author Author [facility] [employer] [facility] Organization [facility] [employer] [facility] Address Unknown Phone Unavailable Care Team Providers Care Processing Technician Name Role Phone Shonna Richards Unavailable PROBLEMS Type Condition ICD9-CM Code GQS08-XQ Code Onset Dates Condition S tatus W/U Status Risk SNOMED Code Notes Problem Enlarged prostate N40.0 Active confirmed 24 3099371 Problem Loss of smell R43.0 Active confirmed 878063 09 Problem Essential hypertension I10 Active confirmed 03961072 Problem Diabetes type 2, controlled E11.9 Active confirmed 34893845 Problem Diabetes type 2, uncontrolled E11.65 Active confirm ed 551953546 Problem Mixed hyperlipidemia E78.2 Active confirmed 496065978 ALLERGIES No Known Allergies ENCOUNTERS from 1960 to 2020-04-26 Encounter Location Date Provider Diagnosis [address] [address] Mar, Shonna Richards COVID-19 U07.1 ; Diabetes type 2, contro lled E11.9 and Essential hypertension I10 IMMUNIZATIONS Vaccine Route Administration Date Status TDAP [...] Education Language: Question Answer Notes Languages spoken: Portuguese Church: Question Answer Notes Church 33 None Drug and Alcohol Question Answer Notes Total Score: 0 Interpretation: No problems reported BMI Care Goal Follow-Up Question Answer Notes Above Normal BMI Follow-Up Dietary management educatio n, guidance, and counseling, Dietary needs education, Exercise promotion: strength training Tobacco Use: Question Answer Notes Are you a: never smoker REASON FOR REFERRAL No Information VITAL SIGNS Weight 217 lbs Mar, Height 69 in Mar, BMI 32.04 kg/m2 Mar, MEDICATIONS Medication SIG (Take, Route, Frequency, Duration) Notes Start Da te End Date Status Lisinopril 20 MG 1 tablet Orally Once a day for 90 Active Blood Glucose Meter _ as directed _ daily as needed ICD10 E1 1.65 for 99 months May, Active FreeStyle Lite Test _ as directed In Vitro twice d aily as needed ICD10 E11.65 for 30 Active Lancets 30G _ as directed _ bid ICD10 E11.65 for 30 day(s) May, Active Glucophage XR 500 MG 1 tab in am w/ food, 2 tabs in pm w/ food Orally Once a day for 90 day(s) Active Glimepiride 4MG TAKE ONE TABLET BY MOUTH ONC E DAILY WITH BREAKFAST OR THE FIRST MAIN MEAL OF THE DAY Orally Once a day for 90 days Active Atorvastatin Calcium 20 MG 1 tablet Orally Once a day for 90 day(s) Active FreeStyle Lancets _ as directed subcutaneously t wice daily as needed ICD10 E11.65 for 90 day(s) Active FreeStyle Lite - USE TO TEST TWICE DAILY NEEDED for 99 days Active PROCEDURES No Information RESULTS No Results REASON FOR VISIT COVID F/U MEDICAL (GENERAL) HISTORY Type Description Date Surgical History fatty tumor removal 1998 Goals Section No Information Health Concerns No Information MEDICAL EQUIPMENT No Information MENTAL STATUS No Information FUNCTIONAL STATUS No Information ASSESSMENTS Encounter Date Diagnosis Assessment Notes Treatment Notes Treatm ent Clinical Notes Mar, COVID-19 (ICD-10 - U07.1) Clinical Notes: Patient is currently day#8 since his diagnosis. Reports overall improvement in symptoms. His cough has become less frequent, he only experiences dyspnea on extreme exertion. He has not requires anti-pyretics in >24 hours. SpO2 has remained above 95%. Patient was advised to continue to monitor twice daily. If he does note readings slipping into the 80's, patient was advised to present to the ED for further evaluation and management. Given that patient remaines at elevated risk, we will schedule a follow-up appointment in 4 days, on 04/25/20. Patient verbalized understanding with the plan. Mar, Diabetes type 2, controlled (ICD-10 - E11.9) Mar, Essential hypertension (ICD-10 - I10) PLAN OF TREATMENT Treatment Notes Assessment Notes Clinical Notes COVID-19 Clinical Notes: Patient is c urrently day#8 since his diagnosis. Reports overall improvement in symptoms. His cough has become less frequent, he only experiences dyspnea on extreme exertion. He has not requires anti-pyretics in > 24 hours. SpO2 has remained above 95%. Patient was advised to continue to monitor twice daily. If he does note readings slipping into the 80's, patient was advised to present to the ED for further evaluation and management. Given that patient remaines at elevated risk, we will schedule a follow-up appointment in 4 days, on 04/25/20. Patient verbalized understanding with the plan. Insurance Providers Payer Name Payer Address Payer Phone Insured Name Patient Relati onship to Insured Coverage Start Date Coverage End Date [facility] CLAIMS DEPT [address] [facility] [phone] AURY ESTRADA self
--- OUTSIDE RECORDS SUMMARY | 2020-05-09 10:02 | CCD ---
Author Author [facility] Address Unknown Phone Unavailable Support Name Relationship Address Phone UE Next Of Kin Unknown Unavailable BERNARDA CULLEN [place] [address] Tania Muniz ECON Unknown Unavailab le Bernarda Cullen ECON [address] [place] [address] [phone] Re-disclosure Warning The records that you are [...] is protected by Article 27-F of the [facility] Public Health law. If you continue you may have access to information: Regarding HIV / AIDS; Provided by facilities licensed or operated by the [facility] Office of Mental Health; or Provided by the [facility] Office for People With Developmental Disabilities. If such information is present, then the following [facility] mandated warning applies: This information [...] law may result in a fine or long-term sentence or both. A general authorization for the release of medical or other information is NOT sufficient authorization for further disc losure. Family History Family Member Name Family Member Gender Family Member Status Date o f Status Description Data Source(s) Unknown Unknown Problem MEDENT ([facility] ) Encounters Encounter Providers Location Date Indications Data Source(s ) (EDCovidVIR) ED Covid Virtual Visits [address] [place] [address] 04/25/2020 12:00:00 AM EST eCW1 ([facility]) (EDCovidVIR) ED Covid Virtual Visits [address] [place] [address] 04/21/2020 12:00:00 AM EST eCW1 ([facility]) TeleMedicine Phone E/M by Nir 11-20 Min [address] [place] [address] 04/18/2020 12:00:00 AM EST eCW1 ([facility]) Outpatient [address] [facility] [address] 03/01/2020 12:00:00 AM EST eCW1 ([facility]) Unknown [address] [facility] [address] 01/25/2020 12:00:00 AM EST eCW1 ([facility]) Unknown [address] [facility] [address] 09/30/2019 12:00:00 AM EDT eCW1 ([facility]) Unknown [address] [facility] [address] 08/28/2019 12:00:00 AM EDT eCW1 ([facility]) [facility] Rui [address] [facility] [address] 07/29/2019 12:00:00 AM EDT eCW1 ([facility]) [facility] Leray [address] [facility] [address] 04/24/2019 12:00:00 AM EST eCW1 ([facility]) [facility] Leray [address] [facility] [address] 04/17/2019 12:00:00 AM EST eCW1 ([facility]) Insurance Providers Payer name Policy type / Coverage type Policy ID Covered constitution party ID Covered constitution party's relationship to griggs Policy Griggs Plan Information [facility] [id number] [address] [facility] [id number] SP 7 [id number] ANSI-Commercial [id number] [employer] [place] Medicaid [id number] Self [id number] ANSI-Commercial [id number] ANSI-Commercial [id number] ANSI-Commercial [id number] [facility] [id number] S [id number] SELF PAY ONLY UNAVAILABLE SP UNAV AILABLE MEDICAID [id number] SP [id number] Problems, Conditions, and Diagnoses Code Display Name Description Problem Type Effective Dates Data Source(s) R43.0 [id number] Loss of smell Problem 04/18/2020 12:00:00 AM EST eCW1 ([facility]) Results ID Date Data Source [id number] 04/13/2020 12:10:00 AM EST [facility] Name Value Range Interpretation Code Description Data Jesisca rce(s) Supporting Document(s) Respiratory pathogens identified [Type] in Nasopharynx by Probe and target amplification method SARS-CoV-2 (COVID 19) [facility] This lab was ordered by [facility] a nd reported by [facility]. Procedure Social History Code Duration Value Status Description Data Source(s ) Smoking 04/18/2020 12:00:00 AM EST Never Smoker completed Never S moker eCW1 ([facility]) Smoking 04/18/2020 12:00:00 AM EST Never Smoker completed Never S moker eCW1 ([facility]) Smoking 04/18/2020 12:00:00 AM EST Never Smoker completed Never S moker eCW1 ([facility]) Smoking 03/01/2020 12:00:00 AM EST Never Smoker completed Never S moker eCW1 ([facility]) Vital Signs ID Date Data Source UNK Name Value Range Interpretation Code Description Data Source(s) Body mass index (BMI) [Ratio] 32.04 kg/m2 32.04 kg/m2 eCW1 ([facility]) Body height 69 [in_i] 69 [in_i] eCW1 ([facility]) Body weight 217 [lb_av] 217 [lb_av] eCW1 ([facility]) Body mass index (BMI) [Ratio] 32.04 kg/m2 32.04 kg/m2 eCW1 ([facility]) Body height 69 [in_i] 69 [in_i] eCW1 ([facility]) Body weight 217 [lb_av] 217 [lb_av] eCW1 ([facility]) Body mass index (BMI) [Ratio] 32.04 kg/m2 32.04 kg/m2 eCW1 ([facility]) Body height 69 [in_i] 69 [in_i] eCW1 ([facility]) Body weight 217 [lb_av] 217 [lb_av] eCW1 ([facility]) Diastolic blood pressure 72 mm[Hg] 72 mm[Hg] eCW1 ([facility]) Systolic blood pressure 156 mm[Hg] 156 mm[Hg] e CW1 ([facility]) Body temperature 97.3 [degF] 97.3 [degF] eCW1 ( [facility]) Respiratory rate 17 /min 17 /min eCW1 ([facility]) Heart rate 60 /min 60 /min eCW1 ([facility]) Body mass index (BMI) [Ratio] 32.07 kg/m2 32.07 kg/m2 eCW1 ([facility]) Body height 69 [in_i] 69 [in_i] eCW1 ([facility]) Body weight 217.2 [lb_av] 217.2 [lb_av] eCW1 ([facility])
--- OUTSIDE RECORDS SUMMARY | 2020-05-09 10:02 | CCD ---
Author Author [facility] Organization [facility] Address Unknown Phone Unavailable Care Team Providers Care Early Head Start Director Name Role Phone Shonna Richards Unavailable PROBLEMS Type Condition ICD9-CM Code [id number] Code Onset Dates Condition S tatus W/U Status Risk SNOMED Code Notes Problem Enlarged prostate N40.0 Active confirmed 24 6463692 Problem Loss of smell R43.0 Active confirmed 192041 09 Problem Essential hypertension I10 Active confirmed 71502539 Problem Diabetes type 2, controlled E11.9 Active confirmed 01276557 Problem Diabetes type 2, uncontrolled E11.65 Active confirm ed 131656394 Problem Mixed hyperlipidemia E78.2 Active confirmed 891746797 ALLERGIES No Known Allergies ENCOUNTERS from 1960 to 2020-04-28 Encounter Location Date Provider Diagnosis [address] [address] Apr, Shonna Richards COVID-19 U07.1 IMMUNIZATIONS Vaccine Route Administration Date Status TDAP [...] Education Language: Question Answer Notes Languages spoken: Wallisian Yazdanism: Question Answer Notes Yazdanism 33 None Drug and Alcohol Question Answer Notes Total Score: 0 Interpretation: No problems reported BMI Care Goal Follow-Up Question Answer Notes Above Normal BMI Follow-Up Dietary management educatio n, guidance, and counseling, Dietary needs education, Exercise promotion: strength training Tobacco Use: Question Answer Notes Are you a: never smoker REASON FOR REFERRAL No Information VITAL SIGNS Weight 217 lbs Apr, Height 69 in Apr, BMI 32.04 kg/m2 Apr, MEDICATIONS Medication SIG (Take, Route, Frequency, Duration) [...] Notes Treatment Notes Treatm ent Clinical Notes Apr, COVID-19 (ICD-10 - U07.1) Clinical Notes: Patient is currently day#11 since his diagnosis. Reports significant improvement in symptoms. His cough has become much less frequent, he only experiences dyspnea on extreme exertion. SpO2 has remained above 95%. No further telephone calls warranted at this time. Pt will call with any concerns PLAN OF TREATMENT Treatment Notes Assessment Notes Clinical Notes COVID-19 Clinical Notes: Patient is c urrently day#11 since his diagnosis. Reports significant improvement in symptoms. His cough has become much less frequent, he only experiences dyspnea on extreme exertion. SpO2 has remained above 95%. No further telephone calls warranted at this time. Pt will call with any concerns Insurance Providers Payer Name Payer Address Payer Phone Insured Name Patient Relati onship to Insured Coverage Start Date Coverage End Date [facility] CLAIM[facility] DEPT [address] [facility] [phone] AURY ESTRADA self
--- OUTSIDE RECORDS SUMMARY | 2020-05-09 10:02 | CCD ---
Author Author [facility] Organization [facility] [facility] Address Unknown Phone Unavailable Care Team Providers Care Can Tender Name Role Phone Gabriel Oseguera Unavailable PROBLEMS Type Condition ICD9-CM Code [id number] Code Onset Dates Condition S tatus SNOMED Code Notes Problem Enlarged prostate N40.0 Active 160247331 Problem Loss of smell R43.0 Active 30614039 Problem Essential hypertension I10 Active 42805725 Problem Diabetes type 2, controlled E11.9 Active 4405 4006 Problem Diabetes type 2, uncontrolled E11.65 Active 44 0027728 Problem Mixed hyperlipidemia E78.2 Active 819973316 ALLERGIES No Known Allergies ENCOUNTERS from 1960 to 2020-04-20 Encounter Location Date Provider Diagnosis [facility] Resident [address] [place] [address] Mar, [facility] Oumar COVID-19 U07.1 ; Cough R05 ; Dyspnea on exertion R06.00 ; Loss of perception for taste R48.1 ; Loss of smell R43.0 and Fever in other diseases R50.81 IMMUNIZATIONS Vaccine Route Administration Date Status TDAP [...] Education Language: Question Answer Notes Languages spoken: [place] Lutheran: Question Answer Notes Lutheran 33 None Drug and Alcohol Question Answer [...] Information RESULTS No Results REASON FOR VISIT No Information MEDICAL (GENERAL) HISTORY Type Description Date Surgical History fatty tumor removal 1998 Goals Section No Information Health Concerns No Information MEDICAL EQUIPMENT No Information MENTAL STATUS No Information FUNCTIONAL STATUS No Information ASSESSMENTS Encounter Date Diagnosis Assessment Notes Treatment Notes Treatm ent Clinical Notes Mar, COVID-19 (ICD-10 - U07.1) Patient is currently day#5 since his diagnosis. Reports overall improvement in [...] we will schedule a follow-up appointment in 2 days, on 04/20/20. Patient verbalized understanding with the plan. Mar, Cough (ICD-10 - R05) Decreasing severity and frequency. Non-productive. Continue to monitor. Mar, Dyspnea on exertion (ICD-10 - R06.00) Pt reports that he only becomes dyspneic after extreme exertion, patient used to the example of moving 6 barrels of kerosene down his basement stairs to prevent water from freezing. He reports that he is able to ambulate around his house without any trouble. We will continue to monitor this going forward as well. Mar, Loss of perception for taste (ICD-10 - R48.1) Persists, continue to monitor going forward. Mar, Loss of smell (ICD-10 - R43.0) Persists, continue to monitor going forward Mar, Fever in other diseases (ICD-10 - R50.81) Patient has been without antipyretics for greater than 24 hours now. Patient denies any subjective fevers or chills in that time period. We will continue to inquire regarding fever/chills at next visit in 48 hours. PLAN OF TREATMENT Treatment Notes Assessment Notes Clinical Notes COVID-19 Patient is currently day#5 since his diagnosis. Reports overall improvement in [...] we will schedule a follow-up appointment in 2 days, on 04/20/20. Patient verbalized understanding with the plan. Cough Decreasing severity and frequency. Non-productive. Continue to monitor. Dyspnea on exertion Pt reports that he o nly becomes dyspneic after extreme exertion, patient used to the example of moving 6 barrels of kerosene down his basement stairs to prevent water from freezing. He reports that he is able to ambulate around his house without any trouble. We will continue to monitor this going forward as well. Loss of perception for taste Persists, c ontinue to monitor going forward. Loss of smell Persists, continue t o monitor going forward Fever in other diseases Patient has been without antipyretics for greater than 24 hours now. Patient denies any subjective fevers or chills in that time period. We will continue to inquire regarding fever/chills at next visit in 48 hours. Next Appt Details 2 days Reason:COVID Outpatient Program Follow Up:2 daysCOVID Outpatient Program Insurance Providers Payer Name Payer Address Payer Phone Insured Name Patient Relati onship to Insured Coverage Start Date Coverage End Date PENDING SALE [facility] [employer] [facility] DEPT [address] [facility] [phone] AURY ESTRADA self
--- OUTSIDE RECORDS SUMMARY | 2020-05-09 10:25 | CCD ---
Author Author [facility] Organization [facility] Address Unknown Phone Unavailable Support Name Relationship Address Phone UE Next Of Kin Unknown Unavailable [place] [address] Tania Muniz ECON Unknown Unavailab le Bernarda Cullen ECON [address] [place] [address] [phone] Re-disclosure Warning The records that you are [...] is protected by Article 27-F of the [facility] Public Health law. If you continue you may have access to information: Regarding HIV / AIDS; Provided by facilities licensed or operated by the [facility] Office of Mental Health; or Provided by the [facility] Office for People With Developmental Disabilities. If such information is present, then the following [facility] mandated warning applies: This information [...] law may result in a fine or [place] health care facility sentence or both. A general authorization for the release of medical or other information is NOT sufficient authorization for further disc losure. Family History Family Member Name Family Member Gender Family Member Status Date o f Status Description Data Source(s) Unknown Unknown Problem MEDENT ([facility], ) Encounters Encounter Providers Location Date Indications Data Source(s ) (EDCovidVIR) ED Covid Virtual Visits [address] [place] [address] 04/25/2020 12:00:00 AM EST eCW1 ([facility]) (EDCovidVIR) ED Covid Virtual Visits [address] [place] [address] 04/21/2020 12:00:00 AM EST eCW1 ([facility]) TeleMedicine Phone E/M by Nir 11-20 Min [address] [place] [address] 04/18/2020 12:00:00 AM EST eCW1 ([facility]) Outpatient [address] [facility] [address] 03/01/2020 12:00:00 AM EST eCW1 ([facility]) Unknown [address] [facility] [address] 01/25/2020 12:00:00 AM EST eCW1 ([facility]) Unknown [address] [facility] [address] 09/30/2019 12:00:00 AM EDT eCW1 ([facility]) Unknown [address] [facility] [place] [address] 08/28/2019 12:00:00 AM EDT eCW1 ([facility]) [facility] Rui [address] [facility] [place] [address] 07/29/2019 12:00:00 AM EDT eCW1 ([facility]) [facility] Leray [address] [facility] [address] 04/24/2019 12:00:00 AM EST eCW1 ([facility]) [facility] Lergisselle [address] [facility] [address] 04/17/2019 12:00:00 AM EST eCW1 ([facility]) Insurance Providers Payer name Policy type / Coverage type Policy ID Covered green party ID Covered green party's relationship to griggs Policy Griggs Plan Information [facility] [id number] [address] [facility] [id number] SP 7 [id number] ANSI-Commercial [id number] [employer] [place] Medicaid [id number] Self [id number] ANSI-Commercial [id number] ANSI-Commercial [id number] ANSI-Commercial [id number] [facility] [id number] S [id number] SELF PAY ONLY UNAVAILABLE SP UNAV AILABLE MEDICAID [id number] SP [id number] Problems, Conditions, and Diagnoses Code Display Name Description Problem Type Effective Dates Data Source(s) R43.0 [id number] Loss of smell Problem 04/18/2020 12:00:00 AM EST [facility] Results ID Date Data Source [id number] 04/13/2020 12:10:00 AM EST [place] Name Value Range Interpretation Code Description Data Jessica rce(s) Supporting Document(s) Respiratory pathogens identified [Type] in Nasopharynx by Probe and target amplification method SARS-CoV-2 (COVID 19) [facility] This lab was ordered by [facility] a nd reported by [facility]. Procedure Social History Code Duration Value Status Description Data Source(s ) Smoking 04/18/2020 12:00:00 AM EST Never Smoker completed Never S moker eCW1 ([facility]) Smoking 04/18/2020 12:00:00 AM EST Never Smoker completed Never S moker eCW1 ([facility]) Smoking 04/18/2020 12:00:00 AM EST Never Smoker completed Never S moker eCW1 ([facility]) Smoking 03/01/2020 12:00:00 AM EST Never Smoker completed Never S moker eCW1 ([facility]) Vital Signs ID Date Data Source UNK Name Value Range Interpretation Code Description Data Source(s) Body mass index (BMI) [Ratio] 32.04 kg/m2 32.04 kg/m2 eCW1 ([facility]) Body height 69 [in_i] 69 [in_i] eCW1 ([facility]) Body weight 217 [lb_av] 217 [lb_av] eCW1 ([facility]) Body mass index (BMI) [Ratio] 32.04 kg/m2 32.04 kg/m2 eCW1 ([facility]) Body height 69 [in_i] 69 [in_i] eCW1 ([facility]) Body weight 217 [lb_av] 217 [lb_av] eCW1 ([facility]) Body mass index (BMI) [Ratio] 32.04 kg/m2 32.04 kg/m2 eCW1 ([facility]) Body height 69 [in_i] 69 [in_i] eCW1 ([facility]) Body weight 217 [lb_av] 217 [lb_av] eCW1 ([facility]) Diastolic blood pressure 72 mm[Hg] 72 mm[Hg] eCW1 [facility]) Systolic blood pressure 156 mm[Hg] 156 mm[Hg] e CW1 ([facility]) Body temperature 97.3 [degF] 97.3 [degF] eCW1 ( [facility]) Respiratory rate 17 /min 17 /min eCW1 ([facility]) Heart rate 60 /min 60 /min eCW1 ([facility]) Body mass index (BMI) [Ratio] 32.07 kg/m2 32.07 kg/m2 eCW1 [facility]) Body height 69 [in_i] 69 [in_i] eCW1 ([facility]) Body weight 217.2 [lb_av] 217.2 [lb_av] eCW1 ([facility])
[2020-05-09] MEDS ORDERED: NS 1,000 ML IV ONE ×2 (10:45→14:00)
[2020-05-09 11:15] LABS: BASO % 0.1 % (0.0-1.0); EOS % 0.2 % (0.0-3.0); HEMATOCRIT 33.4 % (42.0-52.0); HEMOGLOBIN 10.7 g/dl (13.5-17.5); LYMPH # 0.7 10^3/uL (1.5-5.0); LYMPH % 4.9 % (24.0-44.0); MEAN CORPUSCULAR HEMOGLOBIN 28.9 pg (27.0-33.0); MEAN CORPUSCULAR VOLUME 90.3 fl (80.0-96.0); MONO # 0.7 10^3/uL (0.0-0.8); MONO % 4.5 % (2.0-8.0); NEUTROPHILS % 89.7 % (36.0-66.0); PLATELET COUNT, AUTOMATED 276 10^3/uL (150-450); WHITE BLOOD COUNT 14.5 10^3/uL (4.0-10.0)
[2020-05-09 11:49] LABS: ALT/SGPT 679 U/L (12-78); BILIRUBIN,DIRECT 0.9 MG/DL (0.0-0.2); BILIRUBIN,TOTAL 2.1 MG/DL (0.2-1.0); BLOOD UREA NITROGEN 26 MG/DL (7-18); CALCIUM LEVEL 9.4 MG/DL (8.5-10.1); CARBON DIOXIDE LEVEL 32 MEQ/L (21-32); CHLORIDE LEVEL 98 MEQ/L (98-107); GLOMERULAR FILTRATION RATE > 60.0 (>56); GLUCOSE, FASTING 275 MG/DL (70-100); LIPASE 1692 U/L (73-393); SODIUM LEVEL 139 MEQ/L (136-145); TOTAL PROTEIN 6.6 GM/DL (6.4-8.2)
[2020-05-09] MEDS ORDERED: ISOVUE-370 76% 100ML VIAL As Ordered ONE (11:52)
--- NOTE | 2020-05-09 12:52 | REP ---
INDICATION: Upper abd pain, elev enzymes. COMPARISON: Comparison CT study May 09, 2020.. TECHNIQUE: Right upper quadrant sonography. FINDINGS: Scanning through the right upper quadrant of the abdomen demonstrates a normal sized gallbladder with very slightly thickened wall, 3.4 mm. Echogenic nonmobile calculi are seen near the neck of the gallbladder. Common bile duct is somewhat dilated measuring 9.4 mm in diameter. No focal liver lesion is seen. Limited views of pancreas show no abnormality. The pancreas is partially obscured by abdominal gas. There is no evidence of ascites or right renal abnormality. The right kidney measures 10.8 x 6.0 x 6.4 cm.. IMPRESSION: Cholelithiasis. Minimal gallbladder wall thickening. Dilated common bile duct, 9.4 mm.. <Electronically signed by Ciro Schmitz > 05/09/20 [id number]
[2020-05-09 13:05] LABS: RSV AMPLIFICATION NEGATIVE (NEGATIVE)
--- NOTE | 2020-05-09 13:13 | REP ---
INDICATION: diffuse abdom pain, n/v/d. COMPARISON: Comparison CT study May 16, 2018.. TECHNIQUE: Helical scanning was acquired and 4 mm axial images are re-formatted. Coronal and sagittal MPR images were generated and reviewed. The contrast enhancement dose is 100 mL of intravenous Isovue 370. 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 Normal bowel gas pattern. There are patchy areas of peripheral ground-glass opacity and linear density in the lung bases bilaterally. These changes are new when compared with the May 16, [address] study. Question viral pneumonia, possibly resolving. No pleural effusion is seen. The liver and the spleen are normal in size homogeneous in texture. There is mild diffuse fatty infiltration of the liver. Cholelithiasis is seen. Mild thickening in and enhancement of gallbladder wall is seen but the gallbladder is not distended. common bile duct is mildly dilated measuring 1.1 cm in diameter. No stone is seen in the common bile duct. The pancreas is unremarkable. Normal adrenal glands are seen. No retroperitoneal mass or adenopathy is seen. The kidneys enhance symmetrically and are morphologically intact. A normal appendix is seen. Small and large bowel loops are unremarkable in caliber and distribution. No obstructive lesion is seen. No free fluid is noted. There is mild left colonic diverticulosis without CT evidence of diverticulitis. Urinary bladder is largely empty but unremarkable. Mildly prominent prostate is again seen. IMPRESSION: Cholelithiasis with mild gallbladder wall thickening. Mildly dilated CBD. Mild diffuse fatty infiltration of the liver. Left colonic diverticulosis. Bibasilar post inflammatory changes in the lungs. Question resolving COVID pneumonia. <Electronically signed by Ciro Schmitz > 05/09/20 [id number]
[2020-05-09] MEDS ORDERED: PIPERACILLIN/TAZOBACTAM SOD 3.375 GM in D5W MINI-BAG PLUS 50 ML IV ONE (14:00)
[2020-05-09 18:30] VITALS: BP 171/74
== END 2020-05-09 18:45 | disposition short-term general hospital (02) ==
LOC: M ED 09:53 → CANBEDREQ 15:17 → M ED 18:45
DX: U07.1 COVID-19 (principal); K85.90 Acute pancreatitis without necrosis or infection, unspecified; K85.10 Biliary acute pancreatitis without necrosis or infection; K76.0 Fatty (change of) liver, not elsewhere classified; K57.30 Diverticulosis of large intestine without perforation or abscess without bleeding; R91.8 Other nonspecific abnormal finding of lung field; E11.9 Type 2 diabetes mellitus without complications; I10 Essential (primary) hypertension; E78.5 Hyperlipidemia, unspecified; Z79.84 Long term (current) use of oral hypoglycemic drugs; Z79.899 Other long term (current) drug therapy
CPT/HCPCS: 36415; 74177; 76705; 80048; 80076; 81001; 83690; 85025; 87631; 96361; 96365; 99285; J2543; Q9967

== ENCOUNTER → 2020-07-07 | Outpatient (CLI) | payer OTHER | LOC: M LABSMTC 09:46 | PROVIDERS: ATTEND Anesthesiology | DX: Z01.812 Encounter for preprocedural laboratory examination (principal); Z20.822 Contact with and (suspected) exposure to COVID-19 ==

== ENCOUNTER 2020-07-12 06:03 | Day surgery (SDC) | payer OTHER ==
[~2020-07-12] VITALS: Ht 175.3 cm; Wt 93.2 kg
[2020-07-12] MEDS ORDERED: LR 1,000 ML IV ONE (07:00)
[2020-07-12] MEDS ORDERED: ceFAZolin SOD 2 GM in IV 1 EA IV ONE (07:00)
[2020-07-12] MEDS ORDERED: BUPIVACAINE/EPIN 0.25% 30 ML VIAL As Ordered ONE (07:12)
[2020-07-12] MEDS ORDERED: CONRAY-60 60% 50ML VIAL (Q9961) As Ordered ONE (07:12)
[2020-07-12] MEDS ORDERED: MIDAZOLAM INJ 2MG/2ML VIAL (J2250 PER 1MG) As Ordered ONE (07:48)
[2020-07-12] MEDS ORDERED: ROCURONIUM BROMIDE 50 MG/5 ML VIAL As Ordered ONE ×2 (07:48→08:16)
[2020-07-12] MEDS ORDERED: HYDROmorphone HCL 2 MG/ML 1ML VIAL (J1170) As Ordered ONE (07:48)
[2020-07-12] MEDS ORDERED: LIDOCAINE 2% 100MG/5ML SDV (FOR ANES.) As Ordered ONE (07:48)
[2020-07-12] MEDS ORDERED: ONDANSETRON 4MG/2ML VIAL As Ordered ONE (07:48)
[2020-07-12] MEDS ORDERED: fentaNYL 100 MCG/2 ML INJECTION (J3010) As Ordered ONE (07:48)
[2020-07-12] MEDS ORDERED: propofoL 200 MG/20 ML VIAL As Ordered ONE (07:48)
[2020-07-12] MEDS ORDERED: dexameTHASONE 4 MG/ML 1ML VIAL (J1100 PER 1MG) As Ordered ONE (07:48)
[2020-07-12] MEDS ORDERED: ePHEDrine SULFATE 25 MG/5 ML(5MG/ML) SYRINGE As Ordered ONE (07:51)
[2020-07-12] MEDS ORDERED: KETOROLAC 60MG 2ML VIAL As Ordered ONE (08:09)
[2020-07-12] MEDS ORDERED: SUGAMMADEX SODIUM 500 MG/5 ML VIAL (BRIDION) As Ordered ONE (08:09)
[2020-07-12] MEDS ORDERED: NORCO, ANEXSIA 5/325MG TABLET (HYDROcodone/ACETAMINOPHEN) PO PRN (08:55)
[2020-07-12] MEDS ORDERED: NS 1,000 ML IV SCH (08:55)
[2020-07-12] MEDS ORDERED: oxyCODONE 5MG TAB PO PRN (08:55)
[2020-07-12] MEDS ORDERED: fentaNYL 100 MCG/2 ML INJECTION (J3010) IV PRN (08:55)
--- NOTE | 2020-07-12 09:56 | RO ---
OPERATIVE NOTE DATE OF OPERATION: 07/12/2020 PREOPERATIVE DIAGNOSIS: Gallstone pancreatitis. POSTOPERATIVE DIAGNOSIS: Gallstone pancreatitis. PROCEDURE: Laparoscopic cholecystectomy. SURGEON: Lc Fontaine Jr, MD TRIPE COOKER: ANESTHESIA: General endotracheal anesthesia EBL: Minimal. FLUIDS: Crystalloid. DESCRIPTION OF PROCEDURE: The patient was brought to the operating room and was given general anesthesia. After adequate anesthesia and preoperative antibiotics were given, the patient was prepped and draped in the usual sterile fashion. Next, a supraumbilical incision was made with a skin knife. Blunt dissection was carried down to fascia. A Veress needle was placed into the abdominal cavity and insufflated to 15 mm of pressure. Dilating 10 mm trocar was placed and under direct visualization an epigastric and two lateral trocars were placed. The gallbladder was grasped, retracted superiorly. The gallbladder was cleared of peritoneum laterally and then medially and good window behind the neck of the gallbladder was created. The cystic artery actually was pretty high up on the gallbladder where it entered almost midportion. In any case, after the window was created, neck of the gallbladder tapered down to a nice cystic duct. This was clipped proximally and distally and transected. The gallbladder was removed from the gallbladder bed after clipping the cystic artery and placed in an Endo Catch bag, brought out through the umbilicus. #0 Vicryl was used to close the fascia at the umbilicus. All trocars were closed with 4-0 Vicryl. Steri-Strips and a dry sterile dressing were applied. The patient was awakened, extubated and brought to the recovery room awake, alert and hemodynamically stable. Sponge and needle counts were correct x2.
[2020-07-12 11:07] VITALS: BP 122/59
== END 2020-07-12 11:15 | disposition home or self-care (01) ==
LOC: M SDC 06:03
PROVIDERS: ATTEND Surgery
DX: K80.10 Calculus of gallbladder with chronic cholecystitis without obstruction (principal); I10 Essential (primary) hypertension; E78.00 Pure hypercholesterolemia, unspecified; E11.9 Type 2 diabetes mellitus without complications; Z79.84 Long term (current) use of oral hypoglycemic drugs; Z79.899 Other long term (current) drug therapy
CPT/HCPCS: 47562; 88304; J0690; J1100; J1170; J1885; J2250; J2405; J3010

== ENCOUNTER → 2021-03-02 | Outpatient (REF) | LOC: M LABSMTC 10:02 | PROVIDERS: ATTEND Pediatrics | DX: Z11.52 Encounter for screening for COVID-19 (principal) ==

== ENCOUNTER → 2022-08-08 | Outpatient (CLI) | payer OTHER ==
[2022-08-08 12:23] LABS: ALBUMIN 4.1 G/DL (3.2-5.2); ALKALINE PHOSPHATASE 64 U/L (46-116); ALT/SGPT 22 U/L (7.0-40); AST/SGOT 18 U/L (<34); BILIRUBIN,TOTAL 0.6 MG/DL (0.3-1.2); BLOOD UREA NITROGEN 20 MG/DL (9-23); CARBON DIOXIDE LEVEL 27 MMOL/L (20-31); CHLORIDE LEVEL 108 MMOL/L (98-107); CHOLESTEROL LEVEL 146 MG/DL (<200); CHOLESTEROL RISK RATIO 2.94 (<5); CREATININE FOR GFR 1.06 MG/DL (0.70-1.30); GLOMERULAR FILTRATION RATE > 60.0 (>56); GLUCOSE, FASTING 143 MG/DL (60-100); HDL CHOLESTEROL 49.6 MG/DL (>40); NON-HDL-C 96.4 MG/DL; POTASSIUM SERUM 4.6 MMOL/L (3.5-5.1); SODIUM LEVEL 141 MMOL/L (136-145); TOTAL PROTEIN 6.8 G/DL (5.7-8.2); TRIGLYCERIDES LEVEL 82 MG/DL (<150)
[2022-08-08 12:23] LABS: CREATININE, URINE 127.5 MG/DL
[2022-08-08 12:24] LABS: MAU/CREAT RATIO 52.5 MCG/MG (0.0-30.0)
[2022-08-08 12:34] LABS: HEMOGLOBIN A1c 7.3 % (4.0-6.0)
== END ==
LOC: M LAB 10:51
PROVIDERS: ATTEND Student in an Organized Health Care Education/Training Program
DX: E11.9 Type 2 diabetes mellitus without complications (principal); Z12.5 Encounter for screening for malignant neoplasm of prostate

== ENCOUNTER → 2022-11-12 | Outpatient (CLI) | payer OTHER ==
[2022-11-12 09:11] LABS: HEMOGLOBIN A1c 6.7 % (4.0-6.0)
== END ==
LOC: M LAB 07:21
PROVIDERS: ATTEND Student in an Organized Health Care Education/Training Program
DX: E11.9 Type 2 diabetes mellitus without complications (principal)

== ENCOUNTER → 2023-01-29 | Outpatient (CLI) | payer OTHER ==
[2023-01-29 08:43] LABS: HEMOGLOBIN A1c 6.6 % (4.0-6.0)
== END ==
LOC: M LAB 07:34
PROVIDERS: ATTEND Physician Assistant
DX: E11.9 Type 2 diabetes mellitus without complications (principal)

== ENCOUNTER → 2023-05-31 | Outpatient (CLI) | payer OTHER | LOC: M SOG 08:02 | PROVIDERS: ATTEND Physician Assistant | DX: Z53.9 Procedure and treatment not carried out, unspecified reason (principal) ==

== ENCOUNTER → 2023-12-10 | Outpatient (REF) | payer OTHER ==
[2023-12-10 11:21] LABS: BASO % 0.5 % (0.0-1.0); EOS # 0.5 10^3/uL (0.0-0.5); EOS % 6.4 % (0.0-3.0); HEMATOCRIT 36.7 % (42.0-52.0); HEMOGLOBIN 11.9 g/dl (13.5-17.5); LYMPH # 1.7 10^3/uL (1.5-5.0); LYMPH % 22.5 % (24.0-44.0); MEAN CORPUSCULAR HEMOGLOBIN 30.4 pg (27.0-33.0); MEAN CORPUSCULAR HGB CONC 32.4 g/dl (32.0-36.5); MEAN CORPUSCULAR VOLUME 93.9 fl (80.0-96.0); MONO # 0.5 10^3/uL (0.0-0.8); MONO % 6.3 % (2.0-8.0); NEUTROPHILS # 4.8 10^3/uL (1.5-8.5); NEUTROPHILS % 63.8 % (36.0-66.0); PLATELET COUNT, AUTOMATED 247 10^3/uL (150-450); RED BLOOD COUNT 3.91 10^6/uL (4.30-6.10); WHITE BLOOD COUNT 7.5 10^3/uL (4.0-10.0)
[2023-12-10 11:32] LABS: HEMOGLOBIN A1c 7.3 % (4.0-6.0)
[2023-12-10 11:52] LABS: CREATININE, URINE 132.4 MG/DL
[2023-12-10 11:53] LABS: ALBUMIN 4.1 G/DL (3.2-5.2); ALKALINE PHOSPHATASE 57 U/L (46-116); ALT/SGPT 29 U/L (7.0-40); AST/SGOT 20 U/L (<34); BILIRUBIN,TOTAL 0.5 MG/DL (0.3-1.2); BLOOD UREA NITROGEN 22 MG/DL (9-23); CALCIUM LEVEL 9.7 MG/DL (8.3-10.6); CARBON DIOXIDE LEVEL 26 MMOL/L (20-31); CHLORIDE LEVEL 109 MMOL/L (98-107); CHOLESTEROL LEVEL 166 MG/DL (<200); CHOLESTEROL RISK RATIO 3.75 (<5); CREATININE FOR GFR 1.07 MG/DL (0.70-1.30); GLOMERULAR FILTRATION RATE > 60.0 (>49); GLUCOSE, FASTING 125 MG/DL (74-106); HDL CHOLESTEROL 44.2 MG/DL (>40); LDL CHOLESTEROL 103.4 MG/DL (<100); NON-HDL-C 121.8 MG/DL; POTASSIUM SERUM 5.1 MMOL/L (3.5-5.1); PSA SCREENING 0.42 NG/ML (< 4.00); SODIUM LEVEL 141 MMOL/L (136-145); TOTAL PROTEIN 6.9 G/DL (5.7-8.2); TRIGLYCERIDES LEVEL 92 MG/DL (<150)
[2023-12-10 11:54] LABS: MAU/CREAT RATIO 16.6 MCG/MG (0.0-30.0)
[2023-12-10 11:57] LABS: THYROID STIMULATING HORMONE 2.241 uIU/ML (0.55-4.78)
== END ==
LOC: M SFHCLERA 08:38
PROVIDERS: ATTEND Family Medicine
DX: M65.841 Other synovitis and tenosynovitis, right hand (principal); E11.9 Type 2 diabetes mellitus without complications; N40.0 Benign prostatic hyperplasia without lower urinary tract symptoms

== ENCOUNTER → 2024-01-07 | Outpatient (REF) | payer OTHER | LOC: M SFHCLERA 09:13 | PROVIDERS: ATTEND Physician Assistant | DX: D64.9 Anemia, unspecified (principal) ==

== ENCOUNTER → 2024-01-08 | Outpatient (REF) | payer OTHER ==
[2024-01-08 18:50] LABS: BASO % 0.6 % (0.0-1.0); EOS # 0.5 10^3/uL (0.0-0.5); EOS % 7.7 % (0.0-3.0); HEMATOCRIT 41.4 % (42.0-52.0); HEMOGLOBIN 13.1 g/dl (13.5-17.5); LYMPH # 1.5 10^3/uL (1.5-5.0); LYMPH % 22.4 % (24.0-44.0); MEAN CORPUSCULAR HEMOGLOBIN 30.3 pg (27.0-33.0); MEAN CORPUSCULAR HGB CONC 31.6 g/dl (32.0-36.5); MEAN CORPUSCULAR VOLUME 95.8 fl (80.0-96.0); MONO # 0.3 10^3/uL (0.0-0.8); MONO % 4.7 % (2.0-8.0); NEUTROPHILS # 4.4 10^3/uL (1.5-8.5); NEUTROPHILS % 64.3 % (36.0-66.0); PLATELET COUNT, AUTOMATED 254 10^3/uL (150-450); RED BLOOD COUNT 4.32 10^6/uL (4.30-6.10); WHITE BLOOD COUNT 6.9 10^3/uL (4.0-10.0)
[2024-01-08 18:57] LABS: PERCENT SATURATION 18.9 % (19.7-50.0)
[2024-01-08 18:59] LABS: FERRITIN 126.6 NG/ML (10.5-307.3)
[2024-01-08 19:00] LABS: FOLATE 13.77 NG/ML (>5.4)
== END ==
LOC: M SFHCLERA 09:18
PROVIDERS: ATTEND Physician Assistant
DX: D64.9 Anemia, unspecified (principal)

== ENCOUNTER → 2024-08-05 | Outpatient (REF) | payer OTHER | LOC: M SFHCLERA 10:26 | PROVIDERS: ATTEND Internal Medicine | DX: Z53.9 Procedure and treatment not carried out, unspecified reason (principal) ==

== ENCOUNTER → 2024-11-27 | Outpatient (REF) | payer OTHER | LOC: M SFHCLERA 08:28 | PROVIDERS: ATTEND Internal Medicine | DX: Z53.9 Procedure and treatment not carried out, unspecified reason (principal) ==

== ENCOUNTER → 2024-11-30 | Outpatient (REF) | payer OTHER ==
[2024-11-30 18:19] LABS: BASO # 0.0 10^3/uL (0.0-0.2); BASO % 0.5 % (0.0-1.0); EOS # 0.4 10^3/uL (0.0-0.5); EOS % 6.7 % (0.0-3.0); LYMPH # 1.4 10^3/uL (1.5-5.0); LYMPH % 21.6 % (24.0-44.0); MONO # 0.4 10^3/uL (0.0-0.8); MONO % 5.9 % (2.0-8.0); NEUTROPHILS # 4.3 10^3/uL (1.5-8.5); NEUTROPHILS % 65.0 % (36.0-66.0); PLATELET COUNT, AUTOMATED 241 10^3/uL (150-450)
[2024-11-30 18:20] LABS: CALCIUM LEVEL 9.0 MG/DL (8.3-10.6); CARBON DIOXIDE LEVEL 25 MMOL/L (20-31); CHLORIDE LEVEL 107 MMOL/L (98-107); CHOLESTEROL LEVEL 170 MG/DL (<200); CHOLESTEROL RISK RATIO 3.17 (<5); CREATININE FOR GFR 0.89 MG/DL (0.70-1.30); GLOMERULAR FILTRATION RATE > 90.0 (>49); LDL CHOLESTEROL 101.5 MG/DL (<100); NON-HDL-C 116.5 MG/DL; POTASSIUM SERUM 4.1 MMOL/L (3.5-5.1); SODIUM LEVEL 143 MMOL/L (136-145); TRIGLYCERIDES LEVEL 75 MG/DL (<150)
[2024-11-30 18:30] LABS: CREATININE, URINE 22.9 MG/DL; MALB URINE SIEMENS 11.0 MG/L; MAU/CREAT RATIO 48.0 MCG/MG (0.0-30.0)
== END ==
LOC: M SFHCLERA 17:23
PROVIDERS: ATTEND Internal Medicine
DX: E11.9 Type 2 diabetes mellitus without complications (principal)

== ENCOUNTER → 2025-01-06 | Outpatient (CLI) | payer OTHER | LOC: M WUC 08:59 | PROVIDERS: ATTEND Internal Medicine | DX: M54.2 Cervicalgia (principal); M47.812 Spondylosis without myelopathy or radiculopathy, cervical region ==